=== PATIENT | female | born 1975 | race Caucasian/White ===

== ENCOUNTER 2017-05-08 02:55 | Inpatient (IN) | payer MEDICARE, OTHER ==
[~2017-05-08] VITALS: Ht 167.6 cm; Wt 60.9 kg
[2017-05-08 03:38] LABS: HEMOGLOBIN 16.3 gm/dl (12.3-15.3); RED BLOOD COUNT 5.47 M/UL (4.00-5.10); WHITE BLOOD COUNT 16.6 K/UL (4.5-11.0)
[2017-05-08] MEDS ORDERED: CYMBALTA60 MG PO (16:52)
[2017-05-08] MEDS ORDERED: SEROQUEL300 MG PO (16:53)
[2017-05-08] MEDS ORDERED: BUSPAR 5MG TABLE5 MG PO (16:54)
[2017-05-08] MEDS ORDERED: MAXALT10 MG PO (16:54)
[2017-05-08] MEDS ORDERED: TOPAMAX100 MG PO (16:55)
[2017-05-08] MEDS ORDERED: BENZTROPINE MESY1 MG PO (16:56)
[2017-05-08] MEDS ORDERED: PROPRANOLOL HCL80 MG PO (16:56)
[2017-05-08] MEDS ORDERED: PHENERGAN 25 MG25 M1 PO (16:57)
[2017-05-08] MEDS ORDERED: TIZANIDINE HCL4 M1 PO (16:58)
[2017-05-08] MEDS ORDERED: BELSOMRA5 MG PO (16:59)
[2017-05-08] MEDS ORDERED: IBUPROFEN600 MG PO (17:00)
[2017-05-08] MEDS ORDERED: ESOMEPRAZOLE MA40 MG PO (17:00)
[2017-05-08] MEDS ORDERED: MORPHINE SULFAT15 MG PO (17:01)
[2017-05-09 08:02] LABS: BUN/CREATININE RATIO 9 (0-10)
[2017-05-09 08:07] LABS: HEMOGLOBIN 12.6 gm/dl (12.3-15.3); RED BLOOD COUNT 4.27 M/UL (4.00-5.10); WHITE BLOOD COUNT 7.6 K/UL (4.5-11.0)
[2017-05-10 07:48] LABS: BUN/CREATININE RATIO 7 (0-10)
[2017-05-11 03:30] LABS: BUN/CREATININE RATIO 3 (0-10)
[2017-05-11 05:36] LABS: HEMOGLOBIN 10.8 gm/dl (12.3-15.3); RED BLOOD COUNT 3.55 M/UL (4.00-5.10); WHITE BLOOD COUNT 3.2 K/UL (4.5-11.0)
[2017-05-12 10:16] LABS: RED BLOOD COUNT 3.75 M/UL (4.00-5.10); WHITE BLOOD COUNT 2.7 K/UL (4.5-11.0)
[2017-05-12 10:33] LABS: BUN/CREATININE RATIO 2 (0-10)
[2017-05-12] MEDS ORDERED: LOPRESSOR 25 MG25 MG PO (13:02)
[2017-05-12] MEDS ORDERED: ZOFRAN 4 MG TAB4 MG PO (13:06)
== END 2017-05-12 12:23 | disposition home or self-care (01) | DRG 558 ==
LOC: ER1 02:55 → PROG CARE 08:20 → ZEROF 08:20 → PROG CARE 16:46
PROVIDERS: Emergency Medicine; Internal Medicine Gastroenterology; ADMIT Internal Medicine
PROC: 0DJ08ZZ Inspection of Upper Intestinal Tract, Via Natural or Artificial Opening Endoscopic (ICD-10-PCS; principal; 2017-05-10 08:32)
DX: M62.82 Rhabdomyolysis (principal); E87.2 Acidosis; G90.50 Complex regional pain syndrome I, unspecified; A04.8 Other specified bacterial intestinal infections; R10.13 Epigastric pain; T37.3X5A Adverse effect of other antiprotozoal drugs, initial encounter; M79.7 Fibromyalgia; K76.0 Fatty (change of) liver, not elsewhere classified; E87.6 Hypokalemia; E83.42 Hypomagnesemia; R11.2 Nausea with vomiting, unspecified; E78.5 Hyperlipidemia, unspecified; E86.0 Dehydration; K21.9 Gastro-esophageal reflux disease without esophagitis; F17.210 Nicotine dependence, cigarettes, uncomplicated; K44.9 Diaphragmatic hernia without obstruction or gangrene; M21.371 Foot drop, right foot; Z79.899 Other long term (current) drug therapy; Z88.0 Allergy status to penicillin; Z88.5 Allergy status to narcotic agent; R74.0 Nonspecific elevation of levels of transaminase and lactic acid dehydrogenase [LDH]; Z98.84 Bariatric surgery status; E16.2 Hypoglycemia, unspecified; G24.01 Drug induced subacute dyskinesia; E87.8 Other disorders of electrolyte and fluid balance, not elsewhere classified; D72.829 Elevated white blood cell count, unspecified; R00.0 Tachycardia, unspecified; Q03.1 Atresia of foramina of Magendie and Luschka
CPT/HCPCS: 36415; 71275; 74250; 80048; 80053; 80074; 80307; 81001; 82009; 82270; 82550; 82553; 82607; 82746; 83036; 83605; 83690; 83735; 83874; 84132; 84439; 84443; 84484; 85025; 85610; 85730; 87040; 89055; 93005; 96361; 96365; 96366; 96372; 96375; 96376; 99291; C9113; J1630; J2250; J2270; J2405; J3010; J7030; J7040; Q9963